=== PATIENT | female | born 1970 | race Caucasian/White ===

== ENCOUNTER 2018-05-15 10:23 | Outpatient (CLI) | payer OTHER | END 2018-05-15 10:41 | disposition home or self-care (01) | LOC: RAD 10:23 | DX: M75.112 Incomplete rotator cuff tear or rupture of left shoulder, not specified as traumatic (principal) ==

== ENCOUNTER 2020-04-01 08:49 | Outpatient (CLI) | payer OTHER | END 2020-04-01 09:00 | disposition home or self-care (01) | LOC: NUCLEAR 08:49 | PROVIDERS: ATTEND Physical Medicine & Rehabilitation | DX: M89.9 Disorder of bone, unspecified (principal) | CPT/HCPCS: 78315; A9503 ==